=== PATIENT | female | born 1955 ===

== ENCOUNTER 2020-07-04 19:34 | Inpatient (IN) | payer MEDICARE, OTHER ==
[~2020-07-04] VITALS: Ht 157.5 cm; Wt 49.0 kg
[~2020-07-04 19:34] MED LIST: ALDACTONE 25MG25 MG PO; BACTROBAN OINT22 GM TOP; BREO ELLIPTA 11 EACH INH; CARDURA 2MG TAB2 MG PO; CARDURA4 MG PO; CELEXA40 MG PO; CLARITIN10 MG PO; CLOPIDOGREL75 MG PO; CORDARONE 200M200 MG PO; COREG 3.125M3.125 MG PO; DULERA 100 MCG8.8 GM INH; EFFEXOR XR75 MG PO; ELIQUIS 2.5 MG2.5 MG PO; ELIQUIS2.5 MG PO; ELIQUIS5 MG PO; ENSURE HIGH PR237 ML PO; FUROSEMIDE40 MG PO; HYDRALAZINE HCL50 MG PO; IMDUR ER TAB 3030 MG PO; IPRAT-ALBUT 0.5-3 ML NEB; K-DUR TAB 10 M10 MEQ PO; LASIX40 MG PO; LEVOFLOXACIN500 MG PO; LIPITOR TAB 1010 MG PO; LISINOPRIL10 MG PO; LOPRESSOR 25 MG25 MG PO; MEXITIL CAP 20200 MG PO; MYCOSTATIN100000 UTS PO; NAPROSYN500 MG PO; NEURONTIN300 MG PO; NICOTINE PATCH1 EAC1 TD; NORCO 5-325 TA1 EACH PO; NORCO 7.5-3251 EACH PO; NORVASC10 MG PO; PLAVIX 75 MG TA75 MG PO; PREDNISONE10 MG PO; PREDNISONE20 MG PO; PREDNISONE5 MG PO; PROTONIX40 MG PO; PROVENTIL HFA 61 INH INH; RANEXA500 MG PO; SINGULAIR10 MG PO; THEOCHRON200 MG PO; THERAGRAN M TAB1 EA PO; TOPROL XL25 MG PO; VENTOLIN HFA 66.7 GM INH; VIBRAMYCIN100 MG PO; ZESTRIL40 MG PO; ZYRTEC10 MG PO
[2020-07-05] MEDS ORDERED: VENTOLIN HFA 66.7 GM INH (03:55)
[2020-07-05] MEDS ORDERED: AMLODIPINE BESY10 MG PO (03:55)
[2020-07-05] MEDS ORDERED: AZELASTINE137 MCG/0. (03:55)
[2020-07-05] MEDS ORDERED: LISINOPRIL20 MG PO (03:55)
[2020-07-05] MEDS ORDERED: SYMBICORT 80-10.2 GM INH (03:55)
[2020-07-05] MEDS ORDERED: ELIQUIS5 MG PO (03:56)
[2020-07-05] MEDS ORDERED: CARVEDILOL6.25 MG PO (03:56)
[2020-07-05] MEDS ORDERED: ATORVASTATIN CA80 MG PO (03:56)
[2020-07-05] MEDS ORDERED: ENTRESTO 97 MG1 EACH PO (03:57)
[2020-07-05] MEDS ORDERED: PREDNISONE5 MG PO (03:57)
[2020-07-05] MEDS ORDERED: LOPRESSOR 25 MG25 MG PO (03:57)
[2020-07-05] MEDS ORDERED: RANOLAZINE ER500 MG PO (03:58)
[2020-07-05] MEDS ORDERED: OMEPRAZOLE20 MG PO (03:59)
[2020-07-05] MEDS ORDERED: PROTONIX 40 MG40 M1 PO (03:59)
[2020-07-05] MEDS ORDERED: HYDROCODON-ACE1 EAC2 PO (03:59)
[2020-07-05 04:02] LABS: HEMOGLOBIN 13.5 gm/dl (12.3-15.3); RED BLOOD COUNT 4.31 M/UL (4.00-5.10); WHITE BLOOD COUNT 23.8 K/UL (4.5-11.0)
[2020-07-05 04:30] LABS: BUN/CREATININE RATIO 41 (0-10)
[2020-07-05 04:42] LABS: BORDETELLA PARAPERTUSSIS Not Detected (Not Detectd); BORDETELLA PERTUSSIS Not Detected (Not Detectd); CHLAMYDIA PNEUMONIAE Not Detected (Not Detectd); CORONAVIRUS HKU1 Not Detected (Not Detectd); CORONAVIRUS NL63 Not Detected (Not Detectd); CORONAVIRUS OC43 Not Detected (Not Detectd); CORONOAVIRUS 229E Not Detected (Not Detectd); HUMAN METAPNEUMOVIRUS Not Detected (Not Detectd); HUMAN RHINOVIRUS/ENTEROVIRUS Not Detected (Not Detectd); INFLUENZA A Not Detected (Not Detectd); INFLUENZA B Not Detected (Not Detectd); MYCOPLASMA PNEUMONIAE Not Detected (Not Detectd); PARAINFLUENZA VIRUS 1 Not Detected (Not Detectd); PARAINFLUENZA VIRUS 2 Not Detected (Not Detectd); PARAINFLUENZA VIRUS 3 Not Detected (Not Detectd); PARAINFLUENZA VIRUS 4 Not Detected (Not Detectd); RESPIRATORY SYNCYTIAL VIRUS Not Detected (Not Detectd)
[2020-07-05 06:07] LABS: SARS-CoV-2 NOT DETECTED (Not Detectd)
[2020-07-06 05:36] LABS: HEMOGLOBIN 12.3 gm/dl (12.3-15.3); RED BLOOD COUNT 3.95 M/UL (4.00-5.10); WHITE BLOOD COUNT 20.7 K/UL (4.5-11.0)
[2020-07-06 06:23] LABS: BUN/CREATININE RATIO 45 (0-10)
[2020-07-07 05:10] LABS: HEMOGLOBIN 10.9 gm/dl (12.3-15.3); RED BLOOD COUNT 3.58 M/UL (4.00-5.10); WHITE BLOOD COUNT 18.1 K/UL (4.5-11.0)
[2020-07-08 03:10] LABS: HEMOGLOBIN 11.7 gm/dl (12.3-15.3); RED BLOOD COUNT 3.82 M/UL (4.00-5.10); WHITE BLOOD COUNT 18.4 K/UL (4.5-11.0)
[2020-07-09 03:24] LABS: HEMOGLOBIN 13.5 gm/dl (12.3-15.3); WHITE BLOOD COUNT 17.9 K/UL (4.5-11.0)
[2020-07-09 03:28] LABS: RED BLOOD COUNT 4.35 M/UL (4.00-5.10)
[2020-07-09] MEDS ORDERED: LEVOFLOXACIN500 MG PO (11:11)
[2020-07-09] MEDS ORDERED: MEDROL DOSEPAK 24 MG PO (11:11)
[2020-07-09 14:12] LABS: ORGANISM ID Not indicated. (.); SPECIMEN SOURCE Urine (.); STREPTOCOCCUS PNEUMONIAE AG Negative (Negative)
== END 2020-07-10 15:10 | disposition home or self-care (01) | DRG 871 ==
LOC: PROG CARE 07-05 03:23 → CCU 07-05 03:23 → PROG CARE 07-07 15:02
PROVIDERS: Family Medicine; Internal Medicine; Internal Medicine Pulmonary Disease; ADMIT Internal Medicine
PROC: B24BZZZ Ultrasonography of Heart with Aorta (ICD-10-PCS; principal; 2020-07-05)
PROC: 5A09357 Assistance with Respiratory Ventilation, Less than 24 Consecutive Hours, Continuous Positive Airway Pressure (ICD-10-PCS; 2020-07-05)
DX: A41.9 Sepsis, unspecified organism (principal); J18.9 Pneumonia, unspecified organism; I21.A1 Myocardial infarction type 2; J96.21 Acute and chronic respiratory failure with hypoxia; J96.22 Acute and chronic respiratory failure with hypercapnia; I50.23 Acute on chronic systolic (congestive) heart failure; J44.0 Chronic obstructive pulmonary disease with (acute) lower respiratory infection; J44.1 Chronic obstructive pulmonary disease with (acute) exacerbation; E87.1 Hypo-osmolality and hyponatremia; E87.2 Acidosis; Z20.822 Contact with and (suspected) exposure to COVID-19; I25.5 Ischemic cardiomyopathy; I11.0 Hypertensive heart disease with heart failure; E78.5 Hyperlipidemia, unspecified; E87.5 Hyperkalemia; D64.9 Anemia, unspecified; G89.4 Chronic pain syndrome; F32.9 Major depressive disorder, single episode, unspecified; I25.10 Atherosclerotic heart disease of native coronary artery without angina pectoris; I44.7 Left bundle-branch block, unspecified; K59.00 Constipation, unspecified; F17.210 Nicotine dependence, cigarettes, uncomplicated; M19.90 Unspecified osteoarthritis, unspecified site; I73.9 Peripheral vascular disease, unspecified; Z86.711 Personal history of pulmonary embolism; Z86.718 Personal history of other venous thrombosis and embolism; Z95.1 Presence of aortocoronary bypass graft; Z95.810 Presence of automatic (implantable) cardiac defibrillator; Z88.1 Allergy status to other antibiotic agents; Z88.2 Allergy status to sulfonamides; Z95.5 Presence of coronary angioplasty implant and graft; Z82.49 Family history of ischemic heart disease and other diseases of the circulatory system; Z79.01 Long term (current) use of anticoagulants; Z79.899 Other long term (current) drug therapy
CPT/HCPCS: ECHO; 36415; 36600; 71045; 80048; 80053; 80061; 80202; 81001; 82550; 82553; 82803; 82962; 83036; 83605; 83735; 83880; 84100; 84132; 84484; 85025; 85610; 85730; 86140; 87040; 87081; 87278; 87633; 87899; 93005; 93306; 93925; 94640; 94660; 94664; 94760; J1610; J1644; J1940; J2270; J2543; J2920; J3370; J7070; Q0177; Q9967